=== PATIENT | female | born 1960 | race Caucasian/White ===

== ENCOUNTER 2020-09-10 18:17 | Emergency (ER) | payer BC, SELFPAY ==
[~2020-09-10] VITALS: Ht 167.6 cm; Wt 68.0 kg
[2020-09-10 18:22] VITALS: BP_SYST 144
--- NOTE | 2020-09-10 18:22 | NUR ---
Patient to ER bed 06 to gown for evaluation. Side rails up.
[2020-09-10] MEDS ORDERED: methylPREDNISolone SOD SUCC/PF 62.5 MG/ML VIAL IVP ONE (18:30)
[2020-09-10] MEDS ORDERED: IPRATROPIUM/ALBUTEROL SULFATE 3 ML AMPUL.NEB (DUONEB) INH ONE (18:30)
[2020-09-10] MEDS ORDERED: NACL 0.9% 500 ML IV ONE (18:30)
[2020-09-10] MEDS ORDERED: MAGNESIUM SULFATE 50 ML IV ONE (18:30)
--- NOTE | 2020-09-10 18:46 | NUR ---
Pt came to ER for pain in chest with deep inspiration, states hx of asthma and it has been worse lately. Pt VSS, resting comfortably, awaiting
--- NOTE | 2020-09-10 18:48 | NUR ---
ER at bedside examining patient.
--- NOTE | 2020-09-10 19:13 | NUR ---
BEDSIDE REPORT TAKEN FROM TELEPHONE DIRECTORY DISTRIBUTOR DRIVERRAQUEL MANLEY WILL ASSUME CARE OF PT
[2020-09-10] MEDS ORDERED: FLUT1DIS3 IH (19:24)
[2020-09-10] MEDS ORDERED: PRED20TA PO (19:25)
--- NOTE | 2020-09-10 20:00 | NUR ---
PT RESTING QUIETLY IN BED VITAL SIGNS STABLE WILL CONTINUE TO MONITOR
[2020-09-10 21:01] VITALS: BP_SYST 140
--- NOTE | 2020-09-10 21:02 | NUR ---
Patient given written and verbal discharge instructions and verbalizes understanding. ER MD STARR discussed with patient the results and treatment provided. Patient in stable condition. ID arm band removed. IV catheter removed intact and dressing applied, no active bleeding. Rx of FLUTICASONE AND PREDNISONE given. Patient educated on pain management and to follow up with PMD. Pain Scale 0/10. Opportunity for questions provided and answered. Medication side effect fact sheet provided.
== END 2020-09-10 21:02 | disposition home or self-care (01) ==
LOC: SED 18:17
DX: J45.909 Unspecified asthma, uncomplicated (principal); Z88.2 Allergy status to sulfonamides; Z88.8 Allergy status to other drugs, medicaments and biological substances; Z79.899 Other long term (current) drug therapy; Z20.822 Contact with and (suspected) exposure to COVID-19
CPT/HCPCS: 71045; 94640; 96365; 96366; 96375; 99284; C9803; J2930; J3475; U0003

== ENCOUNTER 2022-03-12 04:02 | Emergency (ER) | payer BC ==
[~2022-03-12] VITALS: Ht 165.1 cm; Wt 77.1 kg
[~2022-03-12 04:02] MED LIST: FLUT1DIS3 IH; PRED20TA PO
[2022-03-12 04:09] VITALS: BP_SYST 155
--- NOTE | 2022-03-12 04:13 | NUR ---
PT HERE FOR ASTHMA ATTACK SINCE YESTERDAY. PT STATED THAT HER INAHALER AND BREATHING TREATMENT ARE NO RELIEF. PT DENIES CHEST, SHE STATED THAT THERE ARE SOME TIGHTNESS PMH:ASTHMA PT AAOX4, NO SOB NOTED AND NOT IN ANY DISTRESS. PT AMULATED WITH STEADY GAIT TO ROOM2, ATTACHED TO CARDIAC MONITORS.
[2022-03-12] MEDS ORDERED: DEXAMETHASONE SOD PHOSPHATE 10 MG/ML VIAL IM ONE (04:15)
[2022-03-12] MEDS ORDERED: ALBUTEROL SULFATE 0.083% 2.5 MG/3 ML VIAL.NEB INH ONE ×2 (04:15→04:16)
[2022-03-12] MEDS ORDERED: IPRATROPIUM BROM 0.5 MG/2.5 ML VIAL.NEB (ATROVENT) INH ONE ×2 (04:15→04:16)
--- NOTE | 2022-03-12 04:22 | NUR ---
REPORT GIVEN TO ANASTACIO GARCÍA
--- NOTE | 2022-03-12 05:22 | NUR ---
DR. DEL CID AT BEDSIDE FOR RE EVAL.
[2022-03-12] MEDS ORDERED: BUDE6.9H INH (05:31)
[2022-03-12] MEDS ORDERED: PRED20TA PO (05:31)
[2022-03-12 05:42] VITALS: BP_SYST 142
[2022-03-12] MEDS ORDERED: ATRMDI INH (05:42)
--- NOTE | 2022-03-12 05:43 | NUR ---
DC PT HOME AAOX4, NO SOB NOTED AND NOT IN ANY DISTRESS. DC INSTRUCTION AND PRESCRIPTION, INCLUDING WORKNOTE WERE GIVEN TO PATIENT. AND SHE VERBALIZED UNDERSTANDING
== END 2022-03-12 05:42 | disposition home or self-care (01) ==
LOC: SED 04:02
DX: R06.02 Shortness of breath (principal); J45.909 Unspecified asthma, uncomplicated; Z88.2 Allergy status to sulfonamides; Z79.899 Other long term (current) drug therapy
CPT/HCPCS: 94640; 99283; 96372; J1100; J7613

== ENCOUNTER 2022-09-30 14:15 | Emergency (ER) | payer BC ==
[~2022-09-30] VITALS: Ht 165.1 cm; Wt 81.6 kg
[~2022-09-30 14:15] MED LIST changes: +ATRMDI INH; +BUDE6.9H INH; +GUAI-723 PO
[2022-09-30 14:29] VITALS: BP_SYST 148
[2022-09-30] MEDS ORDERED: MORPHINE 4 MG INJ. 4 MG/ML VIAL IM ONE (15:00)
[2022-09-30] MEDS ORDERED: ONDANSETRON 4 MG ODT TAB PO ONE (15:00)
[2022-09-30] MEDS ORDERED: ONDANSETRON HCL 4 MG/2 ML VIAL ONE (15:11)
[2022-09-30] MEDS ORDERED: DIATR MEGLU/DIATRIZ SOD 30 ML SOLUTION PO ONE (15:16)
[2022-09-30 15:19] VITALS: BP_SYST 144
--- NOTE | 2022-09-30 15:21 | NUR ---
FROM HOME PATIENT PLACE IN ROOM 4 C/O EPIGASTRIC PAIN, SEEN BY EDP WITH ORDER SHARON OUT.
[2022-09-30 15:40] LABS: BASOPHILS # (AUTO) 0.1 K/uL (0.0-0.2); BASOPHILS % (AUTO) 0.6 % (0.0-2.0); EOSINOPHILS # (AUTO) 0.8 K/uL (0.0-0.4); EOSINOPHILS % (AUTO) 8.2 % (0.0-4.0); HEMATOCRIT 36.3 % (36-48); HEMOGLOBIN 12.2 g/dL (12.0-16.0); LYMPHOCYTES % (AUTO) 10.9 % (20.5-51.5); MEAN CORPUSCULAR HEMOGLOBIN 30 pg (27-31); MEAN CORPUSCULAR HGB CONC 34 % (32-36); MEAN CORPUSCULAR VOLUME 90 fL (79.0-98.0); MONOCYTES # (AUTO) 0.4 K/uL (0.0-1.0); MONOCYTES % (AUTO) 4.6 % (1.7-9.3); NEUTROPHILS # (AUTO) 7.3 K/uL (1.8-7.7); NEUTROPHILS % (AUTO) 75.7 % (40.0-70.0); PLATELET COUNT (AUTO) 255 K/uL (130-430); RED BLOOD CELL COUNT(AUTO) 4.02 MIL/uL (4.2-6.2); RED CELL DISTRIBUTION WIDTH 14.2 % (9.0-15.0); WHITE BLOOD COUNT (AUTO) 9.6 K/uL (4.8-10.8)
--- NOTE | 2022-09-30 15:45 | NUR ---
edp at bedside for assessment.
--- NOTE | 2022-09-30 16:00 | NUR ---
patient remains in bed, daughter at bedside will continue to monitor.
[2022-09-30 16:26] LABS: ALANINE AMINOTRANSFERASE 30 U/L (12-78); ALBUMIN 3.7 g/dL (3.4-4.8); ANION GAP 9 (5-15); ASPARTATE AMINOTRANSFERASE 36 U/L (10-37); CALCIUM 8.7 mg/dL (8.4-11.0); CHLORIDE 104 mmol/L (98-107); GFR AFRICAN AMERICAN 94 mL/min (>90); GLUCOSE 114 mg/dL (70-99); TOTAL BILIRUBIN 0.5 mg/dL (0.0-1.0); UREA NITROGEN, BLOOD 17 mg/dL (8-21)
[2022-09-30 16:28] LABS: AMYLASE 55 U/L (0-100); LIPASE 194 U/L (73-393)
[2022-09-30 16:32] LABS: C-REACTIVE PROTEIN QUANT < 0.2 mg/dL (0-0.5)
[2022-09-30 16:51] LABS: ACETONE, SERUM NEGATIVE (NEGATIVE)
[2022-09-30] MEDS ORDERED: IBUP-1969 PO (17:08)
[2022-09-30] MEDS ORDERED: HYDR-3917 PO (17:08)
[2022-09-30] MEDS ORDERED: ONDA-8 TL (17:08)
--- NOTE | 2022-09-30 17:41 | NUR ---
all result back edp reassess patient and d/c home with instrucion.
--- NOTE | 2022-09-30 17:46 | NUR ---
Patient given written and verbal discharge instructions and verbalizes understanding. ER MD discussed with patient the results and treatment provided. Patient in stable condition. ID arm band removed. IV catheter removed intact and dressing applied, no active bleeding. Rx of norco/ibuprofen/zofran given. Patient educated on pain management and to follow up with PMD. Pain Scale . Opportunity for questions provided and answered. Medication side effect fact sheet provided.
== END 2022-09-30 17:41 | disposition home or self-care (01) ==
LOC: SED 14:15
DX: K80.20 Calculus of gallbladder without cholecystitis without obstruction (principal); R10.13 Epigastric pain; R11.2 Nausea with vomiting, unspecified; J45.909 Unspecified asthma, uncomplicated; Z88.2 Allergy status to sulfonamides; Z79.899 Other long term (current) drug therapy
CPT/HCPCS: 99285; 74176; 96374; 80053; 82009; 82150; 84703; 83690; 85025; 86140; 84484; 36415; 76376; 83605; Q9964; J2405; J2270

== ENCOUNTER 2023-08-26 20:06 | Emergency (ER) | payer BC ==
[~2023-08-26] VITALS: Ht 165.1 cm; Wt 86.2 kg
[~2023-08-26 20:06] MED LIST changes: +HYDR-3917 PO; +IBUP-1969 PO; +ONDA-8 TL
[2023-08-26 20:08] VITALS: BP_SYST 169; PULSE 84; RESP 18; TEMP 97; O2SAT 99
[2023-08-26 20:46] LABS: BASOPHILS # (AUTO) 0.1 K/uL (0.0-0.2); EOSINOPHILS # (AUTO) 0.2 K/uL (0.0-0.4); EOSINOPHILS % (AUTO) 2.6 % (0.0-4.0); HEMATOCRIT 31.8 % (36-48); HEMOGLOBIN 10.7 g/dL (12.0-16.0); LYMPHOCYTES # (AUTO) 1.4 K/uL (1.0-5.5); MEAN CORPUSCULAR HEMOGLOBIN 30 pg (27-31); MEAN CORPUSCULAR HGB CONC 34 % (32-36); MEAN CORPUSCULAR VOLUME 89 fL (79.0-98.0); MONOCYTES # (AUTO) 0.6 K/uL (0.0-1.0); NEUTROPHILS # (AUTO) 4.1 K/uL (1.8-7.7); NEUTROPHILS % (AUTO) 64.4 % (40.0-70.0); PLATELET COUNT (AUTO) 271 K/uL (130-430); RED BLOOD CELL COUNT(AUTO) 3.56 MIL/uL (4.2-6.2); RED CELL DISTRIBUTION WIDTH 14.1 % (9.0-15.0); WHITE BLOOD COUNT (AUTO) 6.3 K/uL (4.8-10.8)
[2023-08-26 21:14] LABS: ANION GAP 7 (5-15); CALCIUM 7.8 mg/dL (8.4-11.0); CARBON DIOXIDE 26 mmol/L (23-29); CHLORIDE 106 mmol/L (98-107); CREATININE 0.78 mg/dL (0.55-1.30); GFR AFRICAN AMERICAN 97 mL/min (>90); GLUCOSE 100 mg/dL (74-106); POTASSIUM 4.3 mmol/L (3.5-5.1); SODIUM SERUM 139 mmol/L (136-145); UREA NITROGEN, BLOOD 30 mg/dL (8-21)
[2023-08-26 21:15] LABS: GFR NON AFRICAN-AMERICAN 80 mL/min (>90)
[2023-08-26 21:23] LABS: INR 0.9 (0.8-1.2); PROTHROMBIN TIME 9.6 SECS (9.5-12.5)
[2023-08-26] MEDS: IBUPROFEN 600 MG TABLET PO ONE (21:32)
[2023-08-26 21:38] VITALS: BP_SYST 140; PULSE 82; RESP 24; TEMP 98.1; O2SAT 98
== END 2023-08-26 21:38 | disposition home or self-care (01) ==
LOC: SED 20:06
DX: K80.50 Calculus of bile duct without cholangitis or cholecystitis without obstruction (principal); R07.81 Pleurodynia; J45.909 Unspecified asthma, uncomplicated; E78.00 Pure hypercholesterolemia, unspecified; Z88.8 Allergy status to other drugs, medicaments and biological substances; Z79.899 Other long term (current) drug therapy
CPT/HCPCS: 36415; 71045; 80048; 83880; 84484; 85025; 85610; 85730; 93005; 99285